=== PATIENT | male | born 2000 | race African-American/Black ===

== ENCOUNTER 2019-03-26 14:40 | Inpatient (IN) | payer OTHER ==
[~2019-03-26] VITALS: Ht 172.7 cm; Wt 69.4 kg
[2019-03-26 15:20] LABS: HEMATOCRIT 49.3 % (42.0-52.0); HEMOGLOBIN 16.1 g/dl (13.5-17.5); MEAN CORPUSCULAR HEMOGLOBIN 30.1 pg (27.0-33.0); MEAN CORPUSCULAR HGB CONC 32.7 g/dl (32.0-36.5); MEAN CORPUSCULAR VOLUME 92.3 fl (80.0-96.0); PLATELET COUNT, AUTOMATED 216 10^3/uL (150-450); RED BLOOD COUNT 5.34 10^6/uL (4.30-6.10); WHITE BLOOD COUNT 7.4 10^3/uL (4.0-10.0)
[2019-03-26 15:55] LABS: AMPHETAMINES LEVEL URINE NEGATIVE (NEGATIVE); BARBITURATES URINE NEGATIVE (NEGATIVE); BENZODIAZEPINES URINE NEGATIVE (NEGATIVE); CANNABINOIDS URINE NEGATIVE (NEGATIVE); COCAINE METABOLITE URINE NEGATIVE (NEGATIVE); METHADONE URINE NEGATIVE (NEGATIVE); OPIATES URINE NEGATIVE (NEGATIVE); PHENCYCLIDINE URINE NEGATIVE (NEGATIVE)
[2019-03-26 16:15] LABS: ACETAMINOPHEN LEVEL < 2.0 UG/ML (10.0-30.0); ALBUMIN 4.3 GM/DL (3.2-5.2); ALT/SGPT 28 U/L (12-78); BILIRUBIN,DIRECT 0.1 MG/DL (0.0-0.2); BILIRUBIN,TOTAL 0.4 MG/DL (0.2-1.0); BLOOD UREA NITROGEN 10 MG/DL (7-18); CALCIUM LEVEL 9.2 MG/DL (8.5-10.1); CARBON DIOXIDE LEVEL 31 MEQ/L (21-32); CHLORIDE LEVEL 102 MEQ/L (98-107); CREATININE FOR GFR 1.12 MG/DL (0.70-1.30); ETHYL ALCOHOL (ETHANOL) 0.004 % (0.000-0.010); GLUCOSE, FASTING 97 MG/DL (70-100); POTASSIUM SERUM 4.2 MEQ/L (3.5-5.1); SALICYLATE LEVEL < 1.7 MG/DL (5.0-30.0); SODIUM LEVEL 142 MEQ/L (136-145); THYROID STIMULATING HORMONE 0.676 uIU/ML (0.463-3.98); TOTAL PROTEIN 7.9 GM/DL (6.4-8.2)
[2019-03-26] MEDS ORDERED: MAALOX 30 ML SUSP *UDC PO PRN (17:15)
[2019-03-26] MEDS ORDERED: ACETAMINOPHEN TAB 650MG DOSE (2X325MG) PO PRN (17:15)
[2019-03-26] MEDS ORDERED: MOM 30ML SUSPENSION UDC PO PRN (17:15)
[2019-03-26 18:15] VITALS: BP 116/64
[2019-03-27 06:50] VITALS: BP 119/65
[2019-03-27] MEDS: NICOTINE 14 MG/24 HR TRANSDERMAL TD SCH (12:03)
--- NOTE | 2019-03-27 12:14 | HPEPDOC ---
General Date of Admission March 26, 2019 at 17:14 Date of Service: March 27, 2019 Attending Physician: DEANNA MCMAHAN MD Chief Complaint The patient is a 18-year-old male admitted with a reason for visit of Major Depression. 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 On admission, it is documented patient said he had tried to kill himself earlier in the week by wrapping a tourniquet around his neck. There was also documentation of suicidal and homicidal ideation with auditory hallucinations. The major complaint was major depression for about a year. On assessment of patient, he admits to nicotine use, half a pack per day and prior history of depression but denies any other medical history. Denies chills, fever, chest pain, shortness of breath, abdominal pain, nausea, vomiting. Home Medications No Active Prescriptions or Reported Meds Allergies Coded Allergies: No Known Allergies (Unverified , 03/26/19) Past Medical History Medical History Depression Nicotine dependence Social History * Smoker: less than 1 pack/day Alcohol: Denies Drugs: denies A-FIB/CHADSVASC A-FIB History Current/History of A-Fib/PAF?: No Current PO Anticoag Therapy: No Review of Systems Other systems A 10 point pertinent review of systems was completed, negative except as stated in the history of presenting illness. Physical Examination Other physical findings GENERAL: NAD SKIN : Warm, dry intact HEENT: Atraumatic, normocephalic, PERRL, moist mucous membrane CARDIOVASCULAR: Regular rate and rhythm, S1S2, no JVD, no edema, distal pulses + and palpable RESP: CTAB, no accessory muscle use noted ABDOMEN: BS+ non distended non tender MS: no joint deformities NEURO: Alert and oriented x 3, CN2-12 grossly intact PSYCH: flat affect. Vital Signs Vital Signs Date Time Temp Pulse Resp B/P (MAP) Pulse Ox O2 Delivery O2 Flow Rate FiO2 03/27/19 06:50 97.8 95 18 119/65 (83) 03/26/19 18:15 97 03/26/19 17:38 Room Air Laboratory Data Labs 24H Laboratory Tests 2 03/26/19 15:09: Nucleated Red Blood Cells % (auto) 0.0, Anion Gap 9, Calcium Level 9.2, Aspartate Amino Transf (AST/SGOT) 20, Alanine Aminotransferase (ALT/SGPT) 28, Alkaline Phosphatase 120H, Total Bilirubin 0.4, Direct Bilirubin 0.1, Total Protein 7.9, Albumin 4.3, Albumin/Globulin Ratio 1.19, Thyroid Stimulating Hormone (TSH) 0.676, Salicylates Level < 1.7L, Urine Amphetamines Screen NEGATIVE, Urine Benzodiazepines Screen NEGATIVE, Urine Opiates Screen NEGATIVE, Urine Methadone Screen NEGATIVE, Acetaminophen Level < 2.0L, Urine Barbiturates Screen NEGATIVE, Urine Phencyclidine Screen NEGATIVE, Urine Cocaine Metabolite Screen NEGATIVE, Urine Cannabinoids Screen NEGATIVE, Ethyl Alcohol Level 0.004 CBC/BMP Laboratory Tests 03/26/19 15:09 Red Blood Count 5.34, Mean Corpuscular Volume 92.3, Mean Corpuscular Hemoglobin 30.1, Mean Corpuscular Hemoglobin Concent 32.7, Red Cell Distribution Width 11.9 Assessment/Plan Nicotine dependence Depression Suicide and homicidal ideation PLAN At this time patient has no acute medical problems or underlying comorbidities requiring active follow-up. His acute problems are managed by primary team Medical team will sign off, please re-consult as needed. Plan / VTE VTE Prophylaxis Ordered?: No VTE Exclusion Mechanical Proph: Low Risk for VTE ABDOULAYE LEON March 27, 2019 12:14
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
[2019-03-27] MEDS: SERTRALINE HCL 25 MG TABLET PO ONE ×2 (14:12→14:16)
[2019-03-27 18:01] VITALS: BP 124/68
[2019-03-28 06:28] VITALS: BP 93/54
[2019-03-28] MEDS: SERTRALINE HCL 50 MG TAB PO SCH ×2 (09:00→10:35)
[2019-03-28] MEDS: NICOTINE 14 MG/24 HR TRANSDERMAL TD SCH (09:58)
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
[2019-03-28 18:03] VITALS: BP 107/57
[2019-03-29 06:58] VITALS: BP 94/55
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
[2019-03-29] MEDS: NICOTINE 14 MG/24 HR TRANSDERMAL TD SCH (10:25)
[2019-03-29] MEDS: SERTRALINE HCL 50 MG TAB PO SCH (10:25)
[2019-03-29 18:04] VITALS: BP 101/55
[2019-03-30 06:35] VITALS: BP 100/51
[2019-03-30] MEDS: SERTRALINE HCL 50 MG TAB PO SCH ×2 (09:00→10:27)
[2019-03-30] MEDS: NICOTINE 14 MG/24 HR TRANSDERMAL TD SCH (09:00)
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
[2019-03-30 17:55] VITALS: BP 104/55
[2019-03-31 06:50] VITALS: BP 96/52
[2019-03-31] MEDS: NICOTINE 14 MG/24 HR TRANSDERMAL TD SCH (09:00)
[2019-03-31] MEDS: SERTRALINE HCL 50 MG TAB PO SCH (10:13)
[2019-03-31 18:19] VITALS: BP 111/63
[2019-04-01 06:40] VITALS: BP 101/58
[2019-04-01] MEDS: NICOTINE 14 MG/24 HR TRANSDERMAL TD SCH (09:00)
[2019-04-01] MEDS: SERTRALINE HCL 50 MG TAB PO SCH (09:20)
[2019-04-01 18:05] VITALS: BP 108/53
[2019-04-02 07:00] VITALS: BP 102/55
[2019-04-02] MEDS: NICOTINE 14 MG/24 HR TRANSDERMAL TD SCH (09:00)
[2019-04-02] MEDS: SERTRALINE HCL 50 MG TAB PO SCH (09:38)
[2019-04-02] MEDS ORDERED: VENLAFAXINE **XR** 37.5 MG CAPSULE PO ONE (10:30)
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
[2019-04-02 18:23] VITALS: BP 122/59
[2019-04-03 06:35] VITALS: BP 106/59
[2019-04-03] MEDS: VENLAFAXINE **XR** 75MG CAPSULE PO SCH (08:32)
[2019-04-03] MEDS: NICOTINE 14 MG/24 HR TRANSDERMAL TD SCH (08:32)
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
[2019-04-03 18:40] VITALS: BP 107/55
[2019-04-03] MEDS: traZODone 50 MG TAB PO PRN (20:30)
[2019-04-04 06:37] VITALS: BP 90/51
[2019-04-04] MEDS: NICOTINE 14 MG/24 HR TRANSDERMAL TD SCH (09:00)
[2019-04-04] MEDS: VENLAFAXINE **XR** 75MG CAPSULE PO SCH (09:52)
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
[2019-04-04 18:00] VITALS: BP 124/67
[2019-04-04] MEDS: traZODone 50 MG TAB PO PRN (22:08)
[2019-04-05 06:45] VITALS: BP 102/59
[2019-04-05] MEDS: NICOTINE 14 MG/24 HR TRANSDERMAL TD SCH (09:00)
[2019-04-05] MEDS: VENLAFAXINE **XR** 75MG CAPSULE PO SCH (09:52)
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
[2019-04-05 18:00] VITALS: BP 99/62
[2019-04-05] MEDS: traZODone 50 MG TAB PO PRN (22:26)
[2019-04-06 06:31] VITALS: BP 110/51
[2019-04-06] MEDS: NICOTINE 14 MG/24 HR TRANSDERMAL TD SCH ×2 (09:00→15:44)
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
[2019-04-06] MEDS: VENLAFAXINE **XR** 75MG CAPSULE PO SCH (09:37)
[2019-04-06 18:03] VITALS: BP 103/60
[2019-04-06] MEDS: traZODone 50 MG TAB PO PRN (20:14)
[2019-04-07 06:43] VITALS: BP 106/56
[2019-04-07] MEDS: VENLAFAXINE **XR** 75MG CAPSULE PO SCH (08:45)
[2019-04-07] MEDS: NICOTINE 14 MG/24 HR TRANSDERMAL TD SCH ×2 (08:45→15:20)
[2019-04-07 18:04] VITALS: BP 124/58
[2019-04-07] MEDS: hydrOXYzine 25 MG TAB PO PRN (20:18)
[2019-04-07] MEDS: traZODone 50 MG TAB PO PRN (20:18)
[2019-04-08 06:45] VITALS: BP 110/55
[2019-04-08] MEDS: VENLAFAXINE **XR** 75MG CAPSULE PO SCH (08:20)
[2019-04-08] MEDS: NICOTINE 14 MG/24 HR TRANSDERMAL TD SCH (08:21)
[2019-04-08 18:05] VITALS: BP 95/52
[2019-04-08] MEDS: hydrOXYzine 25 MG TAB PO PRN (20:27)
[2019-04-08] MEDS: traZODone 50 MG TAB PO PRN (20:27)
[2019-04-09 06:40] VITALS: BP 96/53
[2019-04-09] MEDS: NICOTINE 14 MG/24 HR TRANSDERMAL TD SCH (08:17)
[2019-04-09] MEDS: VENLAFAXINE **XR** 75MG CAPSULE PO SCH (08:18)
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
[2019-04-09] MEDS ORDERED: TRAZ-252 PO (08:51)
[2019-04-09] MEDS ORDERED: VENL75CA47 PO (08:51)
[2019-04-09] MEDS ORDERED: HYDR-3363 PO (08:51)
== END 2019-04-09 11:00 | disposition home or self-care (01) | DRG 882 ==
LOC: M ED 14:40 → M ED INP 17:14 → M PSY 18:10
PROVIDERS: ADMIT Psychiatry & Neurology Child & Adolescent Psychiatry; ATTEND Psychiatry & Neurology Psychiatry
DX: F43.23 Adjustment disorder with mixed anxiety and depressed mood (principal); Z62.810 Personal history of physical and sexual abuse in childhood; Z62.811 Personal history of psychological abuse in childhood; F17.200 Nicotine dependence, unspecified, uncomplicated; F60.2 Antisocial personality disorder; Z76.5 Malingerer [conscious simulation]

== ENCOUNTER 2019-04-30 15:06 | Inpatient (IN) | payer OTHER ==
[~2019-04-30] VITALS: Ht 172.7 cm; Wt 71.9 kg
[~2019-04-30 15:06] MED LIST: HYDR-3363 PO; TRAZ-252 PO; VENL75CA47 PO
[2019-04-30 16:15] LABS: HEMATOCRIT 43.5 % (42.0-52.0); HEMOGLOBIN 14.3 g/dl (13.5-17.5); MEAN CORPUSCULAR HEMOGLOBIN 29.8 pg (27.0-33.0); MEAN CORPUSCULAR HGB CONC 32.9 g/dl (32.0-36.5); MEAN CORPUSCULAR VOLUME 90.6 fl (80.0-96.0); PLATELET COUNT, AUTOMATED 245 10^3/uL (150-450); WHITE BLOOD COUNT 6.3 10^3/uL (4.0-10.0)
[2019-04-30 16:46] LABS: AMPHETAMINES LEVEL URINE NEGATIVE (NEGATIVE); BARBITURATES URINE NEGATIVE (NEGATIVE); BENZODIAZEPINES URINE NEGATIVE (NEGATIVE); CANNABINOIDS URINE NEGATIVE (NEGATIVE); COCAINE METABOLITE URINE NEGATIVE (NEGATIVE); METHADONE URINE NEGATIVE (NEGATIVE); OPIATES URINE NEGATIVE (NEGATIVE); PHENCYCLIDINE URINE NEGATIVE (NEGATIVE)
[2019-04-30 16:57] LABS: ACETAMINOPHEN LEVEL < 2.0 UG/ML (10.0-30.0); ALBUMIN 4.2 GM/DL (3.2-5.2); ALT/SGPT 40 U/L (12-78); BILIRUBIN,DIRECT 0.1 MG/DL (0.0-0.2); BILIRUBIN,TOTAL 0.4 MG/DL (0.2-1.0); BLOOD UREA NITROGEN 13 MG/DL (7-18); CALCIUM LEVEL 9.3 MG/DL (8.5-10.1); CARBON DIOXIDE LEVEL 27 MEQ/L (21-32); CHLORIDE LEVEL 108 MEQ/L (98-107); CREATININE FOR GFR 1.12 MG/DL (0.70-1.30); ETHYL ALCOHOL (ETHANOL) < 0.003 % (0.000-0.010); GLUCOSE, FASTING 81 MG/DL (70-100); SALICYLATE LEVEL < 1.7 MG/DL (5.0-30.0); SODIUM LEVEL 141 MEQ/L (136-145); TOTAL PROTEIN 7.4 GM/DL (6.4-8.2)
[2019-04-30] MEDS ORDERED: MAALOX 30 ML SUSP *UDC PO PRN ×2 (18:00→18:45)
[2019-04-30] MEDS ORDERED: OLANZapine 5 MG TAB PO PRN (18:00)
[2019-04-30] MEDS ORDERED: IBUPROFEN 400 MG TAB PO PRN ×2 (18:00→18:45)
[2019-04-30] MEDS ORDERED: MOM 30ML SUSPENSION UDC PO PRN ×2 (18:00→18:45)
[2019-04-30] MEDS ORDERED: traZODone 50 MG TAB PO PRN ×2 (18:00→18:45)
[2019-04-30] MEDS ORDERED: ACETAMINOPHEN TAB 650MG DOSE (2X325MG) PO PRN (18:45)
[2019-04-30] MEDS ORDERED: HYDR-3363 PO (18:53)
[2019-04-30] MEDS ORDERED: VENL75CA47 PO (18:53)
[2019-04-30] MEDS ORDERED: TRAZ-252 PO (18:53)
[2019-05-01 06:38] VITALS: BP 107/60
--- NOTE | 2019-05-01 16:11 | HPEPDOC ---
General Date of Admission Apr 30, 2019 at 17:49 Date of Service: May 01, 2019 Chief Complaint The patient is a 18-year-old male who presented to the emergency room with complaints of suicidal thoughts. History of Present Illness Patient is a 18-year-old male with a past mental history of depression and insomnia who presented to the emergency room after experiencing thoughts of suicide. Patient has reported that this is not the first time he is experiences and has been admitted for similar circumstances in the past. Pain is reported t hat he has not been compliant with his medications. Currently is being managed by psychiatry. Hospitalist service was called for medical screening / management. Patient denies any headache, nausea, vomiting, chest pain, shortness breath, palpitations, abdominal pain, constipation, diarrhea, or urinary discomfort. Patient denies any fevers or chills in the last 2 weeks. Patient reports that his appetite has been normal and his weight has been consistent. Home Medications Scheduled Venlafaxine HCl (Venlafaxine HCl ER) 75 Mg Cap.er.24h, 75 MG PO DAILY, (Reported) Scheduled PRN Hydroxyzine HCl (Hydroxyzine HCl) 25 Mg Tablet, 25 MG PO Q6H PRN for ANXIETY, (Reported) Trazodone HCl (Trazodone HCl) 50 Mg Tablet, 50 MG PO QHS PRN for INSOMNIA, (Reported) Allergies Coded Allergies: No Known Allergies (Unverified , 04/30/19) Past Medical History Medical History Depression Insomnia Surgical History None reported Family History - Mother and father with no reported medical problems Social History - Denies the use of alcohol or illicit drugs; Reports smoking for 1 year at <0.5ppd - Denies recent travel or sick contacts - Lives alone - Occupation; [employer] Review of Systems Other systems 10 point review of systems complete, all negative otherwise stated in HPI Vital Signs - Vitals: BP 107/60, HR 61, RR 18, Sat 98%RA, Temp 98.1F - General: Lying in bed, No acute distress, Speaking in full sentences, AAOx3 - HEENT: NC, AT, PERRLA - CVS: RRR, +S1S2 - Lungs: Fair air entry bilaterally, No appreciable wheezing / rales / rhonchi - Abdomen: Soft, Non-distended, Non-tender - Extremities: No lower extremity edema, No calf tenderness - Neuro: No focal motor or sensory deficit - Skin: No visible rashes Plan / VTE VTE Prophylaxis Ordered?: Yes Plan Plan Suicidal ideation - Hx of depression and non-compliance with medications - Presented to the ED with thoughts of suicide, history of prior admissions for same - Currently being managed by psychiatry No active medical problems of note Mild elevation of AST - Will check Hepatitis panel and repeat CMP DVT prophylaxis - Will c/w early ambulation Female respite care provider was present throughout the duration of his history and physical examination SRIDHAR NOGUEIRA MD May 01, 2019 16:11
[2019-05-01 18:00] VITALS: BP 107/51
[2019-05-01 18:31] LABS: ALBUMIN 4.2 GM/DL (3.2-5.2); ALT/SGPT 46 U/L (12-78); BILIRUBIN,TOTAL 0.2 MG/DL (0.2-1.0); BLOOD UREA NITROGEN 12 MG/DL (7-18); CALCIUM LEVEL 9.2 MG/DL (8.5-10.1); CARBON DIOXIDE LEVEL 26 MEQ/L (21-32); CHLORIDE LEVEL 107 MEQ/L (98-107); CREATININE FOR GFR 0.95 MG/DL (0.70-1.30); GLUCOSE, FASTING 120 MG/DL (70-100); POTASSIUM SERUM 4.5 MEQ/L (3.5-5.1); SODIUM LEVEL 140 MEQ/L (136-145); TOTAL PROTEIN 7.4 GM/DL (6.4-8.2)
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
[2019-05-01] MEDS: hydrOXYzine 25 MG TAB PO PRN (21:39)
[2019-05-02 06:00] VITALS: BP 99/54
--- NOTE | 2019-05-02 07:58 | MHIPNPDOC ---
[facility] Progress Note Progress Note Date of Service: 05/02/2019 History of Present Illness The patient is a 18-year-old man with a history of reported depression as well as ADHD, presents to the [facility] ER after being referred by [facility] for reportedly demonstrating suicidal thoughts and reporting auditory and visual hallucinations. 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 There was notations that the patient had been coached by another patient in an attempt to get med boarded from the , as he was doing fairly poorly. The patient has a noted history of difficulty in the and is currently in chapter proceedings to be disconnected from the due to consistent patterns of poor behavior. The patient has noted problems socializing with others and generally having poor ability to relate, being fairly disrespectful in previous admissions. Interval History The patient's met with today both in treatment team and individually. He was interested in being discharged; however, [facility] outlined several major concerns in terms of the patient's behavior. He has been fairly isolative to his room and does not attend groups. At times he does socialize with others, but frequently stays quite hidden away. He's had no behavioral outbursts. He reports that the Hydroxyzine is more helpful for sleep than Trazodone. He was mildly upset about not being able to go home but has not made any great problem over it. He continues to deny any continued depressive symptoms or other symptomatology at this time. Review Of Systems Patient at this time denies any side effects from medications or depressive symptoms, anxiety or other psychiatric symptoms. Psychotherapy None on this visit. Vital Signs Reviewed. Mental Status Examination General: Well dressed with good hygiene Speech: Spontaneous and fluid Thought processes: Linear and logical MSK: Smooth and coordinated gait, no signs of tremors or involuntary orofacial movements Thought content: Future orientated Abstract reasoning, and computation: Intact Description of associations: Intact Description of abnormal or psychotic thoughts: Denies any suicidal or homicidal ideation. Denies any auditory or visual hallucinations. Does not appear to be responding to internal stimuli. Does not appear to be endorsing any bizarre or paranoid ideation. Judgment: fair Insight: poor Orientation: Alert and orientated 3 Cognition: Grossly normal Recent and remote memory: Intact Attention span and concentration: Intact Fund of knowledge: Adequate Mood: "okay" Affect: Euthymic with a full range Diagnoses 1. Adjustment disorder with disruption of mood and conduct: unstable 2. Cluster B traits: stable 3. Concern for malingering Assessment and Plan The patient a 18 year old man with a history of conduct behaviors and suicidal thoughts as well as potential depression, primarily manifesting as adjustment disorder. Will continue with Hydroxyzine for sleep and further observation, as it's not clear if an antidepressant is indicated, as the patient has in the past stopped taking his medication and is not clear whether it would be useful for him at this time, given that there is a strong concern for secondary gain vs. primary personality disorder. Disposition The patient will need a further inpatient admission for observation in order to ascertain his symptoms better as the patient does appear to be fairly guarded and minimizes his symptoms with significant concerns from his outpatient providers especially with the long holiday weekend where he will not be able to access care. Time Spent 15 minutes of [id number] time. Vital Signs Vital Signs Date Time Temp Pulse Resp B/P (MAP) Pulse Ox O2 Delivery O2 Flow Rate FiO2 05/02/19 06:00 97.6 57 12 99/54 (69) 04/30/19 15:29 98 Room Air Laboratory Data 24H Labs Laboratory Tests 2 05/01/19 17:55: Anion Gap 7L, Blood Urea Nitrogen 12, Creatinine 0.95, Sodium Level 140, Potassium Level 4.5, Chloride Level 107, Carbon Dioxide Level 26, Calcium Level 9.2, Aspartate Amino Transf (AST/SGOT) 89H, Alanine Aminotransferase (ALT/SGPT) 46, Alkaline Phosphatase 133H, Total Bilirubin 0.2, Total Protein 7.4, Albumin 4.2, Albumin/Globulin Ratio 1.31 CBC/BMP Laboratory Tests 05/01/19 17:55 Calcium Level 9.2, Aspartate Amino Transf (AST/SGOT) 89 H, Alanine Aminotransferase (ALT/SGPT) 46, Alkaline Phosphatase 133 H, Total Bilirubin 0.2, Total Protein 7.4, Albumin 4.2 Current Medications Current Medications Acetaminophen (Tylenol Tab) 650 mg Q6HP PRN PO HEADACHE or DISCOMFORT; Start 04/30/19 at 18:45 Al Hydrox/Mg Hydrox/Simethicone (Mylanta) 30 ml Q4HP PRN PO HEARTBURN/INDIGESTION; Start 04/30/19 at 18:00; Status Cancel Al Hydrox/Mg Hydrox/Simethicone (Mylanta) 30 ml Q4HP PRN PO HEARTBURN/INDIGESTION; Start 04/30/19 at 18:45 Home Med (Med Rec Complete!) ASDIRECTED XX ; Start 04/30/19 at 19:00; Stop 04/30/19 at 19:00; Status DC Hydroxyzine HCl (Atarax) 25 mg QHSP PRN PO sleep Last administered on 05/01/19at 21:39; Start 05/01/19 at 20:30 Ibuprofen (Advil) 400 mg Q6HP PRN PO PAIN; Start 04/30/19 at 18:00; Status Cancel Ibuprofen (Advil) 400 mg Q6HP PRN PO PAIN; Start 04/30/19 at 18:45 Magnesium Hydroxide (Milk Of Magnesia) 30 ml DAILYPRN PRN PO CONSTIPATION; Start 04/30/19 at 18:00; Status Cancel Magnesium Hydroxide (Milk Of Magnesia) 30 ml DAILYPRN PRN PO CONSTIPATION; Start 04/30/19 at 18:45 Olanzapine (ZyPREXA) 5 mg Q6HP PRN PO ANXIETY/agitiation; Start 04/30/19 at 18:00; Status Cancel Olanzapine (ZyPREXA) 5 mg Q6HP PRN PO AGITATION/ANXIETY; Start 04/30/19 at 18:45 Trazodone HCl (Desyrel) 50 mg QHSP PRN PO INSOMNIA; Start 04/30/19 at 18:00; Status Cancel Trazodone HCl (Desyrel) 50 mg QHSP PRN PO INSOMNIA; Start 04/30/19 at 18:45; Stop 05/01/19 at 20:26; Status DC Allergies Coded Allergies: No Known Allergies (Unverified , 04/30/19) STACI COVARRUBIAS DO May 02, 2019 07:58
[2019-05-02 11:05] LABS: HEPATITIS B SURFACE ANTIGEN NEGATIVE (NEGATIVE)
[2019-05-02 11:33] LABS: HEPATITIS B CORE ANTIBODY IGM NEGATIVE (NEGATIVE); HEPATITIS C VIRUS ABY INDEX 0.1 INDEX (<0.8)
[2019-05-02 11:35] LABS: HEPATITIS A ANTIBODY IGM NEGATIVE (NEGATIVE)
[2019-05-02 18:19] VITALS: BP 104/58
[2019-05-02] MEDS: hydrOXYzine 25 MG TAB PO PRN (23:09)
[2019-05-02] MEDS: OLANZapine 5 MG TAB PO PRN (23:09)
--- NOTE | 2019-05-03 05:52 | MHIPNPDOC ---
[facility] Progress Note Progress Note Inpatient Progress Note Ryan Zapata Age 18 Male Date of : 2000 Date of Service: 05/03/2019 History of Present Illness The patient is a 18-year-old man with a history of reported depression as well as ADHD, presents to the [facility] ER after being referred by [facility] for reportedly demonstrating suicidal thoughts and reporting auditory and visual hallucinations. 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 There was notations that the patient had been coached by another patient in an attempt to get med boarded from the , as he was doing fairly poorly. The patient has a noted history of difficulty in the and is currently in chapter proceedings to be disconnected from the due to consistent patterns of poor behavior. The patient has noted problems socializing with others and generally having poor ability to relate, being fairly disrespectful in previous admissions. Interval History The patient is met with today. He was sleeping in his bed. He had received his watch. He describes that he has been able to sleep with the hydroxyzine, but otherwise denies any symptoms. He still has not been attending groups and has not been very social in the banks. [facility] is closed for today and tomorrow and thus, any potential discharge will need to be on Tuesday. The patient states that although he's unhappy with this, he has accepted this. He reports no complaints at this time, not any side effects from the medications. Review Of Systems Patient at this time denies any side effects from medications or depressive symptoms, anxiety or other psychiatric symptoms. Psychotherapy Not on this visit. Vital Signs Reviewed. Mental Status Examination General: Well dressed with good hygiene Speech: Spontaneous and fluid Thought processes: Linear and logical MSK: Smooth and coordinated gait, no signs of tremors or involuntary orofacial movements Thought content: Future orientated Abstract reasoning, and computation: Intact Description of associations: Intact Description of abnormal or psychotic thoughts: Denies any suicidal or homicidal ideation. Denies any auditory or visual hallucinations. Does not appear to be responding to internal stimuli. Does not appear to be endorsing any bizarre or paranoid ideation. Judgment: fair Insight: poor Orientation: Alert and orientated 3 Cognition: Grossly normal Recent and remote memory: Intact Attention span and concentration: Intact Fund of knowledge: Adequate Mood: "okay" Affect: Euthymic with a full range Diagnoses 1. Adjustment disorder with disruption of mood and conduct, stable 2. Cluster B traits: stable 3. Concern for malingering Assessment and Plan The patient, a 18 year old man, with a history of conduct behaviors and suicidal thoughts as well as potential depression, primarily manifesting as adjustment disorder. The patient will continue with hydroxyzine 25 mg for sleep. It doesn't appear that an antidepressant is indicated, as it appears to be primarily personality traits and an adjustment problem that could do well with psychotherapy. The patient would likely do well in an intensive outpatient program for psychotherapy if he's able to get sufficient buy-in. Disposition The patient will need a further inpatient admission for observation in order to ascertain his symptoms better as the patient does appear to be fairly guarded and minimizes his symptoms with significant concerns from his outpatient providers especially with the long holiday weekend where he will not be able to access care. Time Spent 15 minutes of [id number] time. Vital Signs Vital Signs Date Time Temp Pulse Resp B/P (MAP) Pulse Ox O2 Delivery O2 Flow Rate FiO2 05/02/19 18:19 98.8 85 16 104/58 (73) 04/30/19 15:29 98 Room Air Current Medications Current Medications Acetaminophen (Tylenol Tab) 650 mg Q6HP PRN PO HEADACHE or DISCOMFORT; Start 04/30/19 at 18:45 Al Hydrox/Mg Hydrox/Simethicone (Mylanta) 30 ml Q4HP PRN PO HEARTBURN/INDIGESTION; Start 04/30/19 at 18:00; Status Cancel Al Hydrox/Mg Hydrox/Simethicone (Mylanta) 30 ml Q4HP PRN PO HEARTBURN/INDIGESTION; Start 04/30/19 at 18:45 Home Med (Med Rec Complete!) ASDIRECTED XX ; Start 04/30/19 at 19:00; Stop 04/30/19 at 19:00; Status DC Hydroxyzine HCl (Atarax) 25 mg QHSP PRN PO sleep Last administered on 05/02/19at 23:09; Start 05/01/19 at 20:30 Ibuprofen (Advil) 400 mg Q6HP PRN PO PAIN; Start 04/30/19 at 18:00; Status Cancel Ibuprofen (Advil) 400 mg Q6HP PRN PO PAIN; Start 04/30/19 at 18:45 Magnesium Hydroxide (Milk Of Magnesia) 30 ml DAILYPRN PRN PO CONSTIPATION; Start 04/30/19 at 18:00; Status Cancel Magnesium Hydroxide (Milk Of Magnesia) 30 ml DAILYPRN PRN PO CONSTIPATION; Start 04/30/19 at 18:45 Olanzapine (ZyPREXA) 5 mg Q6HP PRN PO ANXIETY/agitiation; Start 04/30/19 at 18:00; Status Cancel Olanzapine (ZyPREXA) 5 mg Q6HP PRN PO AGITATION/ANXIETY Last administered on 05/02/19at 23:09; Start 04/30/19 at 18:45 Trazodone HCl (Desyrel) 50 mg QHSP PRN PO INSOMNIA; Start 04/30/19 at 18:00; Status Cancel Trazodone HCl (Desyrel) 50 mg QHSP PRN PO INSOMNIA; Start 04/30/19 at 18:45; Stop 05/01/19 at 20:26; Status DC Allergies Coded Allergies: No Known Allergies (Unverified , 04/30/19) STACI COAVRRUBIAS DO May 03, 2019 05:52
[2019-05-03 06:32] VITALS: BP 106/58
[2019-05-03 18:08] VITALS: BP 102/55
[2019-05-04 06:10] VITALS: BP 99/56
--- NOTE | 2019-05-04 12:51 | MHIPNPDOC ---
[facility] Progress Note Progress Note Inpatient Progress Note Ryan Zapata Age 18 Male Date of : 2000 Date of Service: 05/04/2019 History of Present Illness The patient is a 18-year-old man with a history of reported depression as well as ADHD, presents to the [facility] ER after being referred by [facility] for reportedly demonstrating suicidal thoughts and reporting auditory and visual hallucinations. 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 There was notations that the patient had been coached by another patient in an attempt to get med boarded from the , as he was doing fairly poorly. The patient has a noted history of difficulty in the and is currently in chapter proceedings to be disconnected from the due to consistent patterns of poor behavior. The patient has noted problems socializing with others and generally having poor ability to relate, being fairly disrespectful in previous admissions. Interval History Patient's met with today briefly. He describes that he has been more social and is appreciative of his recent room change, as his previous roommate was fairly distorted and that had worried him. He describes he still feels fairly upset about the having him stay longer. He reports that he has been able to sleep well and is socializing better. He describes that he feels that he'll ultimately come back because he feels that the puts him into fairly stressful situations that will ultimately lead to increased stress. This will only end when he eventually leaves the , but he's very future orientated about his career plans and hopes to be out of the shortly. He has had no behavioral events on the unit and has not made any concerning statements regarding safety during his admission. Review Of Systems Denies any side effects from medication. Psychotherapy None on this visit. Vital Signs Reviewed. Mental Status Examination General: Well dressed with good hygiene Speech: Spontaneous and fluid Thought processes: Linear and logical MSK: Smooth and coordinated gait, no signs of tremors or involuntary orofacial movements Thought content: Future orientated Abstract reasoning, and computation: Intact Description of associations: Intact Description of abnormal or psychotic thoughts: Denies any suicidal or homicidal ideation. Denies any auditory or visual hallucinations. Does not appear to be responding to internal stimuli. Does not appear to be endorsing any bizarre or paranoid ideation. Judgment: fair Insight: Improving Orientation: Alert and orientated 3 Cognition: Grossly normal Recent and remote memory: Intact Attention span and concentration: Intact Fund of knowledge: Adequate Mood: "okay" Affect: Euthymic with a full range Diagnoses Antisocial personality disorder Assessment and Plan The patient, a 18-year-old man, with a history of conduct behaviors and suicidal thoughts as well as potential depression, primarily manifesting as adjustment disorder. The patient will continue on hydroxyzine 25 mg for sleep. His adjustment disorder appears to be improving as he's out of his reported stressful situation demonstrating an underlying personality trait/disorder is much more likely than a primary axis 1 mental health disorder. Disposition The patient will need a further inpatient admission for observation in order to ascertain his symptoms better as the patient does appear to be fairly guarded and minimizes his symptoms with significant concerns from his outpatient providers especially with the long holiday weekend where he will not be able to access care. Time Spent 15 mins face to face Vital Signs Vital Signs Date Time Temp Pulse Resp B/P (MAP) Pulse Ox O2 Delivery O2 Flow Rate FiO2 05/04/19 06:10 98.6 60 18 99/56 (70) 04/30/19 15:29 98 Room Air Current Medications Current Medications Acetaminophen (Tylenol Tab) 650 mg Q6HP PRN PO HEADACHE or DISCOMFORT Last administered on 05/03/19at 20:27; Start 04/30/19 at 18:45 Al Hydrox/Mg Hydrox/Simethicone (Mylanta) 30 ml Q4HP PRN PO HEARTBURN/INDIGESTION; Start 04/30/19 at 18:00; Status Cancel Al Hydrox/Mg Hydrox/Simethicone (Mylanta) 30 ml Q4HP PRN PO HEARTBURN/INDIGESTION; Start 04/30/19 at 18:45 Home Med (Med Rec Complete!) ASDIRECTED XX ; Start 04/30/19 at 19:00; Stop 04/30/19 at 19:00; Status DC Hydroxyzine HCl (Atarax) 25 mg QHSP PRN PO sleep Last administered on 05/02/19at 23:09; Start 05/01/19 at 20:30 Ibuprofen (Advil) 400 mg Q6HP PRN PO PAIN; Start 04/30/19 at 18:00; Status Cancel Ibuprofen (Advil) 400 mg Q6HP PRN PO PAIN; Start 04/30/19 at 18:45 Magnesium Hydroxide (Milk Of Magnesia) 30 ml DAILYPRN PRN PO CONSTIPATION; Start 04/30/19 at 18:00; Status Cancel Magnesium Hydroxide (Milk Of Magnesia) 30 ml DAILYPRN PRN PO CONSTIPATION; Start 04/30/19 at 18:45 Olanzapine (ZyPREXA) 5 mg Q6HP PRN PO ANXIETY/agitiation; Start 04/30/19 at 18:00; Status Cancel Olanzapine (ZyPREXA) 5 mg Q6HP PRN PO AGITATION/ANXIETY Last administered on 05/02/19at 23:09; Start 04/30/19 at 18:45 Trazodone HCl (Desyrel) 50 mg QHSP PRN PO INSOMNIA; Start 04/30/19 at 18:00; Status Cancel Trazodone HCl (Desyrel) 50 mg QHSP PRN PO INSOMNIA; Start 04/30/19 at 18:45; Stop 05/01/19 at 20:26; Status DC Allergies Coded Allergies: No Known Allergies (Unverified , 04/30/19) STACI COVARRUBIAS DO May 04, 2019 10:13
[2019-05-04 18:00] VITALS: BP 107/55
[2019-05-04] MEDS: hydrOXYzine 25 MG TAB PO PRN (20:39)
[2019-05-05 06:34] VITALS: BP 90/65
[2019-05-05 18:00] VITALS: BP 113/56
[2019-05-05] MEDS: hydrOXYzine 25 MG TAB PO PRN (21:20)
[2019-05-06 06:00] VITALS: BP 91/50
[2019-05-06 18:00] VITALS: BP 99/57
[2019-05-06] MEDS: hydrOXYzine 25 MG TAB PO PRN (20:59)
[2019-05-07 06:30] VITALS: BP 96/60
[2019-05-07] MEDS: OLANZapine 5 MG TAB PO PRN (09:25)
[2019-05-07] MEDS ORDERED: NICO21PAT TOP (10:07)
--- NOTE | 2019-05-07 12:14 | MHDSPDOC ---
[facility] Discharge Summary Discharge Summary DATE OF ADMISSION: Apr 30, 2019 at 17:49 DATE OF DISCHARGE:05/07/19 Discharge Ryan Zapata Age 18 Male Date of : 2000 Date of Service: 05/07/2019 Diagnoses Antisocial personality disorder. History of Present Illness The patient is a 18-year-old man with a history of reported depression as well as ADHD, presents to the [facility] ER after being referred by [facility] for reportedly demonstrating suicidal thoughts and reporting auditory and visual hallucinations. 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 There was notations that the patient had been coached by another patient in an attempt to get med boarded from the , as he was doing fairly poorly. The patient has a noted history of difficulty in the and is currently in chapter proceedings to be disconnected from the due to consistent patterns of poor behavior. The patient has noted problems socializing with others and generally having poor ability to relate, being fairly disrespectful in previous admissions. Consultants Involved Hospitalist screening. Treatment and Progress On The Unit The patient was admitted to the inpatient unit. 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 He was noted to at first be fairly hesitant about socializing with others on the unit, but quickly began to socialize with others. He did demonstrate behaviors consistent with antisocial personality disorder. He was able to problem-solve but reported that he found no interest in taking antidepressants as he felt they did not help him. He did take some hydroxyzine that was helpful at times. He reports that he feels that the being his primary stressor is the cause of his admission. He was originally slated to be discharged earlier, however, due to [facility]'s concern about him being monitored longer, he was monitored over the weekend where he demonstrated no concerning safety issues and no concerning ideation, he was able to tend to his needs on the unit without any difficulties. Discharge Assessment A 18-year-old man with a history of antisocial personality disorder, presenting after arguments and rancor with his command. He reports that he spontaneously had resolution of his symptoms once he had become "bored" of being on the unit. He was noted to engage in various teasing of other patients and did not demonstrate signs consistent with adjustment disorder but primarily antisocial personality disorder. Mental Status Examination General: Well dressed with good hygiene Speech: Spontaneous and fluid Thought processes: Linear and logical MSK: Smooth and coordinated gait, no signs of tremors or involuntary orofacial movements Thought content: Future orientated Abstract reasoning, and computation: Intact Description of associations: Intact Description of abnormal or psychotic thoughts: Denies any suicidal or homicidal ideation. Denies any auditory or visual hallucinations. Does not appear to be responding to internal stimuli. Does not appear to be endorsing any bizarre or paranoid ideation. Judgment: fair Insight: fair Orientation: Alert and orientated 3 Cognition: Grossly normal Recent and remote memory: Intact Attention span and concentration: Intact Fund of knowledge: Adequate Mood: "okay" Affect: Euthymic with a full range Follow Up The social work team worked during the predischarge meeting in order to evaluate for further issues of lethality address them fully before discharge. They worked on safety planning with the patient's family members in order to ensure that the patient will have a safe and effective discharge. The amount of time spent in the coordination of care for this patient was approximately 30 minutes. Vital Signs/I&Os Vital Signs Date Time Temp Pulse Resp B/P (MAP) Pulse Ox O2 Delivery O2 Flow Rate FiO2 05/07/19 06:30 98.2 56 16 96/60 (72) 05/05/19 06:34 100 Medications Scheduled Nicotine (Nicotine Patch) 21 Mg Patch.td24, 1 PATCH TOP DAILY for smoking cessation for 28 Days, #28 Scheduled PRN Trazodone HCl (Trazodone HCl) 50 Mg Tablet, 50 MG PO QHS PRN for INSOMNIA, (Reported) Allergies Coded Allergies: No Known Allergies (Unverified , 04/30/19) STACI COVARRUBIAS DO May 07, 2019 12:14
== END 2019-05-07 11:30 | disposition home or self-care (01) | DRG 883 ==
LOC: M ED 15:06 → M ED INP 17:49 → M PSY 19:43
PROVIDERS: ADMIT Psychiatry & Neurology Psychiatry; ATTEND Psychiatry & Neurology Addiction Medicine
DX: F60.2 Antisocial personality disorder (principal); R45.851 Suicidal ideations; F90.9 Attention-deficit hyperactivity disorder, unspecified type; Z91.14 Patient's other noncompliance with medication regimen